=== PATIENT | female | born 1955 | race Two or more races ===

== ENCOUNTER 2017-12-05 07:40 | Outpatient (CLI) | payer OTHER | END 2017-12-05 07:44 | disposition home or self-care (01) | LOC: SONOGRAMA 07:40 | DX: E04.1 Nontoxic single thyroid nodule (principal) ==

== ENCOUNTER → 2019-05-02 | Outpatient (CLI) | payer OTHER | END | disposition home or self-care (01) | LOC: RAD 09:39 → MAMO-SONO 10:15 | DX: E04.8 Other specified nontoxic goiter (principal); R07.89 Other chest pain ==

== ENCOUNTER 2019-06-01 08:28 | Outpatient (CLI) | payer OTHER | END 2019-06-01 10:58 | disposition home or self-care (01) | LOC: SONOGRAMA 08:28 | DX: E04.8 Other specified nontoxic goiter (principal) ==

== ENCOUNTER 2021-07-08 19:16 | Emergency (ER) | payer OTHER ==
[~2021-07-08] VITALS: Ht 160 cm; Wt 54.4 kg
[2021-07-08] MEDS ORDERED: METROPROLOL (20:55)
== END 2021-07-08 22:36 | disposition home or self-care (01) ==
LOC: ER 19:16
DX: M94.0 Chondrocostal junction syndrome [Tietze] (principal); R07.89 Other chest pain